=== PATIENT | male | born 1980 ===

== ENCOUNTER 2017-12-31 07:46 | Day surgery (SDC) | payer OTHER | END 2017-12-31 12:45 | disposition home or self-care (01) | LOC: AMB-ENDOS 07:46 → CIR.AMB 13:15 | DX: K62.1 Rectal polyp (principal); K64.0 First degree hemorrhoids ==

== ENCOUNTER 2020-02-02 07:35 | Day surgery (SDC) | payer OTHER | END 2020-02-02 14:15 | disposition home or self-care (01) | LOC: AMB-ENDOS 07:35 | PROVIDERS: ATTEND Colon & Rectal Surgery | DX: K57.32 Diverticulitis of large intestine without perforation or abscess without bleeding (principal); K64.1 Second degree hemorrhoids ==